=== PATIENT | male | born 1975 | race Caucasian/White ===

== ENCOUNTER 2018-03-30 22:52 | Emergency (ER) | payer SELFPAY ==
[~2018-03-30] VITALS: Ht 180.3 cm; Wt 76.0 kg
[2018-03-30 22:53] VITALS: BP 144/87
--- NOTE | 2018-03-30 23:48 | NUR ---
MEDICATION REQUESTED FROM PHARMACY
[2018-03-31] MEDS ORDERED: MOXIFLOXACIN OPHTH O.5%, 3ML LEFTEYE SCH
--- NOTE | 2018-03-31 00:09 | NUR ---
NO ABX RXN NOTED. DC EDUCATION PROVIDED, PT DEMONSTRATES UNDERSTANDING. PT AMBUALTED STEADILY TO DC WITH RN AND FRIEND. FRIEND TO TRANSPORT PT HOME.
== END 2018-03-31 00:11 | disposition home or self-care (01) ==
LOC: ED 23:04
DX: H16.002 Unspecified corneal ulcer, left eye (principal); F17.200 Nicotine dependence, unspecified, uncomplicated
CPT/HCPCS: 99283